=== PATIENT | male | born 1960 | race Two or more races ===

== ENCOUNTER 2021-08-25 14:40 | Emergency (ER) | payer OTHER ==
[~2021-08-25] VITALS: Ht 177.8 cm; Wt 140.6 kg
--- NOTE | 2021-08-25 15:00 | NUR ---
[employer]. PER PT, HE HAS BEEN HAVING DIZZINESS (MOVING SENSATION) W/ NAUSEA/VOMITING SINCE YESTERDAY. PT IS A/O X4, AMBULATORY. TO ER BED 2.
[2021-08-25] MEDS ORDERED: diphenhydrAMINE HCL 50 MG/ML VIAL IV ONE (15:30)
[2021-08-25] MEDS ORDERED: hydrALAZINE HCL IV 20 MG VIAL IV ONE ×2 (15:30→17:00)
[2021-08-25] MEDS ORDERED: ONDANSETRON 4 MG TAB.RAPDIS PO ONE (15:30)
--- NOTE | 2021-08-25 15:30 | NUR ---
IV LINE INSERTED ON RAC #20, BLOOD DRAWN AND SENT TO LAB
[2021-08-25] MEDS ORDERED: hydrALAZINE HCL IV 20 MG VIAL ONE ×2 (15:32→17:01)
[2021-08-25] MEDS ORDERED: diphenhydrAMINE HCL 50 MG/ML VIAL ONE (15:32)
[2021-08-25] MEDS ORDERED: ONDANSETRON 4 MG TAB.RAPDIS ONE (15:33)
--- NOTE | 2021-08-25 15:36 | NUR ---
TECH AT BEDSIDE FOR EKG
--- NOTE | 2021-08-25 15:36 | NUR ---
GREGA VERIFIED W/ PT.
--- NOTE | 2021-08-25 15:46 | NUR ---
PT TAKEN TO RADIOLOGY VIA WHEELCHAIR.
--- NOTE | 2021-08-25 15:53 | NUR ---
PT BACK FROM RADIOLOGY.
[2021-08-25 15:58] LABS: BASOPHILS % (AUTO) 0.5 % (0.0-2.0); EOSINOPHILS % (AUTO) 0.8 % (0.0-6.0); HEMATOCRIT 46 % (39-51); HEMOGLOBIN 15.1 g/dL (13.5-17.5); LYMPHOCYTES # (AUTO) 1.8 K/uL (0.8-4.8); LYMPHOCYTES % (AUTO) 20.8 % (20.0-44.0); MEAN CORPUSCULAR HGB CONC 33 g/dl (31.0-36.0); MEAN CORPUSCULAR VOLUME 94 fL (80-96); MONOCYTES # (AUTO) 0.4 K/uL (0.1-1.30); MONOCYTES % (AUTO) 4.9 % (2.0-12.0); NEUTROPHILS # (AUTO) 6.4 K/uL (1.8-8.9); PLATELET COUNT (AUTO) 272 K/uL (150-450); RED BLOOD CELL COUNT(AUTO) 4.88 MIL/uL (4.5-6.0); WHITE BLOOD COUNT (AUTO) 8.8 K/uL (4.3-11.0)
[2021-08-25 16:21] LABS: CALCIUM, SERUM 9.5 mg/dL (8.5-10.1); CARBON DIOXIDE 27 mmol/L (21-32); CHLORIDE 103 mmol/L (98-107); CREATININE 1.1 mg/dL (0.6-1.3); GLUCOSE 145 mg/dL (74-106); POTASSIUM 3.9 mmol/L (3.5-5.1); SODIUM SERUM 140 mmol/L (136-145); UREA NITROGEN, BLOOD 22 mg/dL (7-18)
[2021-08-25 16:28] LABS: ALANINE AMINOTRANSFERASE 50 U/L (12-78); ALBUMIN 4.3 g/dL (3.4-5.0); ALKALINE PHOSPHATASE 82 U/L (46-116); ASPARTATE AMINOTRANSFERASE 30 U/L (15-37); BILIRUBIN,DIRECT 0.2 mg/dL (0.0-0.2); BILIRUBIN,TOTAL 0.6 mg/dL (0.2-1.0); TOTAL PROTEIN, SERUM 9.2 g/dL (6.4-8.2)
[2021-08-25] MEDS ORDERED: DIAZEPAM 5 MG/ML 2 ML DISP.SYRIN IV ONE (17:00)
[2021-08-25] MEDS ORDERED: DIAZEPAM 5 MG/ML 2 ML DISP.SYRIN ONE (17:02)
[2021-08-25] MEDS ORDERED: DIAZ5TAB PO ×2 (18:21→18:24)
[2021-08-25] MEDS ORDERED: ONDA4TAB5 PO ×2 (18:21→18:45)
[2021-08-25] MEDS ORDERED: MECL-159 PO ×2 (18:21→18:45)
[2021-08-25 18:54] VITALS: BP 145/73
--- NOTE | 2021-08-25 18:54 | NUR ---
IV removed. Catheter intact and site benign. Pressure and 4x4 applied to site. No bleeding noted.Patient discharged to home in stable condition. Written and verbal after care instructions given. Patient verbalizes understanding of instruction.
== END 2021-08-25 18:55 | disposition home or self-care (01) ==
LOC: ER 14:58
DX: R42 Dizziness and giddiness (principal); I10 Essential (primary) hypertension; E78.5 Hyperlipidemia, unspecified; Z79.899 Other long term (current) drug therapy
CPT/HCPCS: 99285; 96374; 70450; 71045; 96375; 93005; 96376; 85025; 80048; 80076; 36415; 84484; 85730; 82962; J3360; J1200; J0360 ×2; Q0162